=== PATIENT | male | born 1935 | race Caucasian/White ===

== ENCOUNTER 2018-01-01 06:42 | Day surgery (SDC) | payer MEDICARE, OTHER ==
[~2018-01-01 06:42] MED LIST: NS 1,000 ML IV
[2018-01-01] MEDS ORDERED: PROPOFOL 200 MG/20 ML VIAL As Ordered ×3 (08:04)
== END 2018-01-01 08:54 | disposition home or self-care (01) ==
LOC: M OPP 06:42
DX: Z12.11 Encounter for screening for malignant neoplasm of colon (principal); Z86.010 Personal history of colon polyps; D12.3 Benign neoplasm of transverse colon; D12.2 Benign neoplasm of ascending colon; K57.30 Diverticulosis of large intestine without perforation or abscess without bleeding; K64.8 Other hemorrhoids; I48.91 Unspecified atrial fibrillation; I25.2 Old myocardial infarction; I25.10 Atherosclerotic heart disease of native coronary artery without angina pectoris; I10 Essential (primary) hypertension; E78.5 Hyperlipidemia, unspecified; Z95.0 Presence of cardiac pacemaker; Z95.1 Presence of aortocoronary bypass graft; D64.9 Anemia, unspecified; M19.90 Unspecified osteoarthritis, unspecified site; F41.9 Anxiety disorder, unspecified; F32.9 Major depressive disorder, single episode, unspecified; N40.1 Benign prostatic hyperplasia with lower urinary tract symptoms; H91.90 Unspecified hearing loss, unspecified ear; Z87.891 Personal history of nicotine dependence; Z88.8 Allergy status to other drugs, medicaments and biological substances; Z80.0 Family history of malignant neoplasm of digestive organs; Z79.01 Long term (current) use of anticoagulants; Z79.899 Other long term (current) drug therapy
CPT/HCPCS: 45385

== ENCOUNTER → 2022-08-03 | Outpatient (CLI) | payer MEDICARE, OTHER ==
[~2022-08-03] MED LIST changes: +ATOR1TAB19 PO; +COUM1TAB17 PO; +COUM2.5T17 PO; +CYAN500T14 PO; +DILT240C42 PO; +FOLI400T13 PO; +GABA-1171 PO; +MULT1TAB10 PO; -NS 1,000 ML IV
== END ==
LOC: M SOG 07:58
PROVIDERS: ATTEND Orthopaedic Surgery
DX: M17.0 Bilateral primary osteoarthritis of knee (principal)

== ENCOUNTER → 2023-07-09 | Outpatient (CLI) | payer OTHER, MEDICARE | LOC: M SOG 08:04 | PROVIDERS: ATTEND Orthopaedic Surgery | DX: M17.0 Bilateral primary osteoarthritis of knee (principal) ==